=== PATIENT | male | born 1980 | race African-American/Black ===

== ENCOUNTER 2024-04-21 12:02 | Emergency (ER) | payer MEDICAID, OTHER ==
[~2024-04-21] VITALS: Ht 167.6 cm; Wt 82.0 kg
[2024-04-21 12:03] VITALS: TEMP 99.1; O2SAT 100
[2024-04-21 13:04] LABS: BASOPHILS % 0.9 % (0.0-2.0); EOSINOPHILS % 1.2 % (0.0-5.0); HEMATOCRIT. 43.9 % (42.0-52.0); HEMOGLOBIN. 14.2 g/dL (14.0-18.0); LYMPHOCYTES % 38.4 % (20.0-50.0); MEAN CORPUSCULAR HEMOGLOBIN 30.8 pg (28.0-32.0); MEAN CORPUSCULAR HGB CONC 32.3 g/dL (31.0-37.0); MEAN CORPUSCULAR VOLUME 95.3 fL (80.0-94.0); MEAN PLATELET VOLUME 8.2 fl (7.4-10.4); MONOCYTES % 5.9 % (2.0-8.0); NEUTROPHILS % 53.6 % (40.0-76.0); PLATELET 251 x1000/uL (130-400); RED BLOOD CELL COUNT 4.61 mill/uL (4.7-6.1); RED CELL DISTRIBUTION WIDTH 12.4 % (11.6-14.6); WHITE BLOOD COUNT 3.6 x1000/uL (4.5-11.0)
[2024-04-21 13:13] LABS: CHLORIDE 105 mEq/L (98-107); POTASSIUM 4.3 mEq/L (3.5-5.1); SODIUM 137 mEq/L (136-145)
[2024-04-21 13:14] LABS: CARBON DIOXIDE 30 mEq/L (21-32)
[2024-04-21 13:15] LABS: CALCIUM 9.5 mg/dL (8.7-10.4)
[2024-04-21 13:19] LABS: GLUCOSE 92 mg/dL (70-105)
[2024-04-21 13:20] LABS: UREA NITROGEN BLOOD 10 mg/dL (9-23)
[2024-04-21 13:44] LABS: TROPONIN I HIGH SENSITIVITY < 4 ng/L (3.0-53)
[2024-04-21 16:42] VITALS: BP 120/65; PULSE 70; RESP 18
== END 2024-04-21 16:49 | disposition home or self-care (01) ==
LOC: ER 12:02
DX: R55 Syncope and collapse (principal)
CPT/HCPCS: 36415; 80048; 84484; 85025; 93005; 99284